=== PATIENT | female | born 1990 | race Caucasian/White ===

== ENCOUNTER 2016-11-29 11:47 | Emergency (ER) | payer BC ==
[2016-11-29] MEDS ORDERED: NS 1,000 ML IV ONE (12:02)
[2016-11-29] MEDS ORDERED: ONDANSETRON 4 MG/2 ML VIAL IVP ONE (12:02)
[2016-11-29 12:06] VITALS: RESP 18
[2016-11-29] MEDS ORDERED: KETOROLAC 30 MG/1 ML SDV IVP ONE (12:12)
[2016-11-29 12:13] LABS: % IMMATURE GRANULYOCYTES 0.3 % (0.0-1.1); ABSOLUTE IMMATURE GRANULOCYTES 0.02 10^3/uL (0.00-0.10); ADD DIFF? NO; ADD MORPH? NO; ADD SCAN? NO; ATYPICAL LYMPHOCYTE FLAG 10 (0-99); FRAGMENT RBC FLAG 0 (0-99); HEMATOCRIT 45.3 % (38.0-47.0); HEMOGLOBIN 15.4 g/dL (12.6-16.3); LEFT SHIFT FLG 0 (0-99); LIPEMIA HEMOLYSIS FLAG 90 (0-99); MEAN CELL HEMOGLOBIN 33.1 pg (27.9-34.1); MEAN CELL VOLUME 97.4 fL (81.5-99.8); MEAN PLATELET VOLUME 9.1 fL (8.7-11.7); PLATELET CLUMPS FLAG 0 (0-99); PLATELET COUNT 268 10^3/uL (150-400); RED BLOOD CELL COUNT 4.65 10^6/uL (4.18-5.33); RED CELL DISTRIBUTION WIDTH 11.9 % (11.5-15.2)
[2016-11-29 12:14] LABS: COLOR YELLOW; LEUKOCYTE ESTERASE,URINE NEGATIVE (NEGATIVE); NITRITE,URINE NEGATIVE (NEGATIVE)
[2016-11-29 12:23] LABS: AMORPHOUS 1+ /hpf (NONE-1+); MUCUS TRACE /lpf (NONE-1+); RBC,URINE 0-1 /hpf (0-3)
[2016-11-29 12:26] LABS: ANION GAP 14 mEq/L (8-16); CALCIUM 9.6 mg/dL (8.5-10.4); CARBON DIOXIDE 25 mEq/l (22-31); CHLORIDE 105 mEq/L (97-110); CREATININE 0.7 mg/dL (0.6-1.0); GLOMERULAR FILTRATION RATE > 60; GLUCOSE 93 mg/dL (70-100); POTASSIUM 4.7 mEq/L (3.5-5.2); SODIUM 144 mEq/L (134-144)
--- NOTE | 2016-11-29 14:46 | EDPHY ---
H & P Stated Complaint: abdominal pain and vomitting starting yesterday, also started menstrating Time Seen by Provider: 11/29/16 12:02 HPI/ROS: This patient started her menses yesterday-normal timing but described as severe intensity pain associated with that were she normally has mild to moderate cramping. She describes the nature of the pain is both aching and sharp/stabbing feeling. Symptoms worsened when she is supine and extend up further in her belly. When she is lying supine. She developed nausea and vomiting associated with pain starting this morning has had 4 episodes of emesis since shortly after midnight with ongoing nausea now. The pain is 5/10 to 7/10 depending on position or movement. She reports the onset was gradual. She has never had pain this severe during menses in the past. ROS: No fevers or chills. No other constitutional symptoms HEENT: No URI symptoms or other complaints 9 pulmonary: No shortness of breath Cardiovascular: No lightheadedness GI: No upper belly pain. She reports normal bowel movements. : No vaginal discharge prior to her menses. No urinary symptoms. 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 migraines - Family History Significant Family History: No pertinent family hx - Social History Smoking Status: Never smoked Alcohol Use: Rarely Drug Use: None Additional Social History: General Appearance: Alert, no distress. Eyes: Pupils equal and round no pallor or injection. ENT, Mouth: Mucous membranes moist. Respiratory: There are no retractions, lungs are clear to auscultation. Cardiovascular: Regular rate and rhythm. Gastrointestinal: Normoactive cysts, soft, moderate suprapubic tenderness extends left more than right lower quadrant. No guarding or rebound. Back: No CVA tenderness the this test of some pain in her pelvis Neurological: GCS 15 with no focal deficits. Skin: Warm and dry, no rashes. Musculoskeletal: Neck is supple nontender. Extremities are symmetrical, full range of motion. Psychiatric: Mood and affect normal DIFFERENTIAL DIAGNOSIS: After history and physical exam differential diagnosis was considered for dysmenorrhea, ovarian cyst, ruptured ovarian cyst, ectopic , UTI Constitutional: Initial Vital Signs Temperature (C) 36.9 C 11/29/16 12:02 Heart Rate 65 11/29/16 12:02 Respiratory Rate 18 11/29/16 12:02 Blood Pressure 115/69 11/29/16 12:02 O2 Sat (%) 96 11/29/16 12:02 O2 Delivery Mode Room Air Allergies/Adverse Reactions: No Known Allergies Allergy (Verified 11/29/16 12:01) Home Medications: Medication Instructions Recorded traMADol [Ultram 50 mg (*)] 50 - 100 mg PO Q4 PRN #20 tab 11/29/16 Medical Decision Making - Diagnostics Imaging Results: Complete pelvic ultrasound revealed slightly enlarged right ovary with increased follicles 5 x [address] Flor-radiologist with whom I discussed this study left ovary is normal in size. Uterus-no remarkable findings ED Course/Re-evaluation: IV Toradol with improvement down to 4/10 discomfort. Patient declined other analgesics explaining that she drove here would prefer to drive home. Review of her labs reveals a negative HCG, unremarkable urinalysis, CBC is normal, basic metabolic panel normal Discussion: Findings are consistent with dysmenorrhea. Patient is comfortable with normal vital signs at the time of discharge. I counseled her regarding her ultrasound. I did explain that the left ovary is not visualized as well as the right so she understands the need to return if she should have any significant increase in her pain despite the treatment plan of ibuprofen, Tylenol and if needed-tramadol. We ruled out ectopic with a negative HCG. We ruled out UTI with normal UA, She does not have a surgical abdomen, no other concerning findings - Data Points Laboratory Results: Laboratory Results 11/29/16 12:00 11/29/16 12:00 Medications Given: Discontinued Medications Sodium Chloride (Ns) 1,000 mls @ 0 mls/hr IV EDNOW ONE; Wide Open PRN Reason: Protocol Stop: 11/29/16 12:03 Last Admin: 07/21/17 12:11 Dose: 1,000 mls Ketorolac Tromethamine (Toradol) 30 mg IVP EDNOW ONE Stop: 11/29/16 12:13 Last Admin: 11/29/16 12:15 Dose: 30 mg Ondansetron HCl (Zofran) 4 mg IVP EDNOW ONE Stop: 11/29/16 12:03 Last Admin: 11/29/16 12:12 Dose: 4 mg Departure - Departure Disposition: Home, Routine, Self-Care Clinical Impression: Dysmenorrhea Condition: Good Instructions: Dysmenorrhea (ED) Additional Instructions: Diagnosis: Dysmenorrhea Plan: Ibuprofen-600 mg per 6 hours as needed and Tylenol for pain control For pain that prevents sleep-tramadol in addition. No driving, alcohol or come tramadol. Your symptoms should improve over the next 2-3 days. Return for any significant worsening despite the treatment plan Referrals: NONE *PRIMARY CARE P,. [Primary Care Provider] - As per Instructions Stand Alone Forms: Work Excuse Prescriptions: traMADol [Ultram 50 mg (*)] 50 - 100 mg PO Q4 PRN #20 tab PRN Reason: breakthrough pain
[2016-11-29 14:55] VITALS: BP 118/72; PULSE 67; TEMP 98; O2SAT 98
== END 2016-11-29 14:54 | disposition home or self-care (01) ==
LOC: CED 11:47
DX: N94.6 Dysmenorrhea, unspecified (principal); E86.9 Volume depletion, unspecified; R11.2 Nausea with vomiting, unspecified
CPT/HCPCS: 76856-PO; 80048-PO; 81003-PO; 81015-PO; 84703-PO; 85025-PO; 96374; J1885; J2405

== ENCOUNTER 2017-01-01 15:24 | Emergency (ER) | payer BC ==
[2017-01-01 15:31] VITALS: BP 112/75; PULSE 68; RESP 18; TEMP 98.1; O2SAT 99
--- NOTE | 2017-01-01 16:22 | EDPHY ---
H & P Stated Complaint: l neck/face pain/walters x 2 days/ non traumatic Source: Patient Exam Limitations: No limitations - Personal History LMP (Females 10-55): 1-7 Days Ago Current Tetanus/Diphtheria Vaccine: Yes Tetanus Vaccine Date: less than 10 years - Medical/Surgical History Hx Asthma: No Hx Chronic Respiratory Disease: No Hx Diabetes: No Hx Cardiac Disease: No Hx Renal Disease: No Hx Cirrhosis: No Hx Alcoholism: No Hx HIV/AIDS: No Hx Splenectomy or Spleen Trauma: No Other PMH: bicornate uterus//05-27-15 Rt hip contusions. migraines - Social History Smoking Status: Never smoked HPI/ROS: CHIEF COMPLAINT: Neck pain, headache HISTORY OF PRESENT ILLNESS: Patient complains of 2 days history of left-sided trapezius pain and spasm. This radiates up into the head causing headache as well. Gradual onset. Constant duration. Moderately worsening over the last 2 days. No fever chills. No stiffness. No trauma or injury. No sudden onset of headache. This is not the worst headache of her life, she does have migraine headaches. This is different than her typical migraine headaches. Reproducible by pushing on the left trapezius or trying to turn. It does occasionally radiate down the left upper arm. No weakness. No numbness or tingling. No other associated complaints or modifying factors. REVIEW OF SYSTEMS: Ten systems reviewed and are negative unless otherwise noted in the HPI PAST MEDICAL HISTORY: Migraine headaches, ovarian cysts SOCIAL HISTORY: Nonsmoker. Works at a [employer] locally. Lives independently. FAMILY HISTORY: Noncontributory EXAMINATION General Appearance: Alert, no distress Head: normocephalic, atraumatic Eyes: Pupils equal and round, no conjunctival pallor or injection ENT, Mouth: Mucous membranes moist. Uvula midline. Airway widely patent Neck: Normal inspection, supple. There is tenderness of the left trapezius and of the paraspinous musculature. No bony tenderness. No crepitus. No meningismus or rigidity. Respiratory: Lungs are clear to auscultation Cardiovascular: Regular rate and rhythm. No murmur Gastrointestinal: Abdomen is soft and nontender Back: non-tender, no bony abnormalities Neurological: A&O, nonfocal, normal gait. Strength symmetric in all 4 limbs. Skin: Warm and dry, no rash. No petechiae or purpura Extremities: Nontender, no pedal edema Psychiatric: Mood and affect normal DIFFERENTIAL DIAGNOSES: Including but not limited to tension headache, trapezius strain, muscle spasm, migraine, meningitis MDM: 4:20 p.m. Left-sided trapezius muscle spasm and pain that is causing a likely tension headache. She has no evidence of meningitis or any nuchal rigidity. Vital signs were well within normal limits. No sudden onset headache. No concern for subarachnoid hemorrhage. Pain is completely reproducible on the left trapezius. Treat with ongoing anti-inflammatories and short course of muscle relaxant or Tylenol 3 with codeine. We discussed this in detail and the need for caution with medication. We also discussed return to ER precautions. She is comfortable with this plan and discharged home in stable condition. SUPERVISION: This patient was independently evaluated without direct examination by the attending physician. Case was discussed with attending physician. (Ivan Pelayo) Constitutional: Initial Vital Signs Temperature (C) 36.7 C 01/01/17 15:29 Heart Rate 68 01/01/17 15:29 Respiratory Rate 18 01/01/17 15:29 Blood Pressure 112/75 01/01/17 15:29 O2 Sat (%) 99 01/01/17 15:29 O2 Delivery Mode Room Air Allergies/Adverse Reactions: No Known Allergies Allergy (Verified 01/01/17 15:28) Home Medications: Medication Instructions Recorded Acetaminophen/Codeine 300/30Mg 1 each PO Q6 PRN #11. tab 01/01/17 [Tylenol #3 (*)] Bcp 01/01/17 Cyclobenzaprine [Flexeril 10 MG 10 mg PO TID PRN #15 tab 01/01/17 (*)] Medical Decision Making ED Course/Re-evaluation: The patient was evaluated and managed by the physician physician's assistant. I have reviewed this chart and I agree with the findings and plan of care as documented , as indicated by my signature. I am the secondary supervising physician. ( Eliane Cardenas) Departure - Departure Disposition: Home, Routine, Self-Care Clinical Impression: Tension headache, Muscle spasm Condition: Good Instructions: Tension Headache (ED), Muscle Spasm (ED) Additional Instructions: 1. Flexeril as prescribed as needed 2. Tylenol 3 as prescribed as needed in replaced the Flexeril but not in conjunction with the Flexeril 3. Continue [id number] anti-inflammatories 4. Increase water intake 5.Massage as tolerated as available 6. ED precautions as discussed Referrals: NONE *PRIMARY CARE P,. [Primary Care Provider] - As per Instructions Sri Gutierrez, [Doctor of Osteopathy] - As per Instructions Stand Alone Forms: Work Excuse Prescriptions: Acetaminophen/Codeine 300/30Mg [Tylenol #3 (*)] 1 each PO Q6 PRN #11. tab PRN Reason: Pain, Mild Cyclobenzaprine [Flexeril 10 MG (*)] 10 mg PO TID PRN #15 tab PRN Reason: Spasms
== END 2017-01-01 16:20 | disposition home or self-care (01) ==
DX: G44.209 Tension-type headache, unspecified, not intractable (principal); M62.838 Other muscle spasm

== ENCOUNTER 2017-06-14 17:54 | Emergency (ER) | payer BC ==
[2017-06-14 17:59] VITALS: O2SAT 99
--- NOTE | 2017-06-14 18:23 | EDPHY ---
H & P Stated Complaint: r great toe inf/started on keflex thurs/not better Time Seen by Provider: 06/14/17 18:05 HPI/ROS: CHIEF COMPLAINT: Right great toe infection HISTORY OF PRESENT ILLNESS: Patient is a 26-year-old female who complains of erythema and significant pain to the medial base of her right great toenail. It does not appear to involve the toenail laterally. It is not central but to the right. It is fluctuant and extremely tender. It began about a week ago. She was seen at the clinic and started on Keflex 3 days ago. It is not improved. She has not had a fever. She has not been able to where she was or sleep well at night. She denies any trauma. 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 REVIEW OF SYSTEMS: Constitutional: denies: chills, fever, recent illness, recent injury EENTM: denies: blurred vision, double vision, nose congestion Respiratory: denies: cough, shortness of breath Cardiac: denies: chest pain, irregular heart rate, lightheadedness, palpitations Gastrointestinal/Abdominal: denies: abdominal pain, diarrhea, nausea, vomiting, blood streaked stools Genitourinary: denies: dysuria, frequency, hematuria, pain Musculoskeletal: denies: joint pain, muscle pain Skin: See HPI Neurological: denies: headache, numbness, paresthesia, tingling, dizziness, weakness Hematologic/Lymphatic: denies: blood clots, easy bleeding, easy bruising Immunologic/allergic: denies: HIV/AIDS, transplant EXAM: GENERAL: Well-appearing, well-nourished and in no acute distress. HEAD: Atraumatic, normocephalic. EYES: Pupils equal round and reactive to light, extraocular movements intact, sclera anicteric, conjunctiva are normal. ENT: TMs normal, nares patent, oropharynx clear without exudates. Moist mucous membranes. NECK: Normal range of motion, supple without lymphadenopathy or JVD. LUNGS: Breath sounds clear to auscultation bilaterally and equal. No wheezes rales or rhonchi. HEART: Regular rate and rhythm without murmurs, rubs or gallops. ABDOMEN: Soft, nontender, normoactive bowel sounds. No guarding, no rebound. No masses appreciated. BACK: No CVA tenderness, no spinal tenderness, step-offs or deformities EXTREMITIES: Normal range of motion, no pitting or edema. No clubbing or cyanosis. NEUROLOGICAL: Cranial nerves II through XII grossly intact. Normal speech, normal gait. 5/5 strength, normal movement in all extremities, normal sensation PSYCH: Normal mood, normal affect. SKIN: See diagram Source: Patient Exam Limitations: No limitations - Personal History LMP (Females 10-55): 1-7 Days Ago Current Tetanus/Diphtheria Vaccine: Yes Tetanus Vaccine Date: less than 10 years - Medical/Surgical History Hx Asthma: No Hx Chronic Respiratory Disease: No Hx Diabetes: No Hx Cardiac Disease: No Hx Renal Disease: No Hx Cirrhosis: No Hx Alcoholism: No Hx HIV/AIDS: No Hx Splenectomy or Spleen Trauma: No Other PMH: bicornate uterus//05-27-15 Rt hip contusions. migraines - Family History Significant Family History: No pertinent family hx - Social History Smoking Status: Never smoked Alcohol Use: Sober Drug Use: None Constitutional: Initial Vital Signs Temperature (C) 36.7 C 06/14/17 17:56 Heart Rate 76 06/14/17 17:56 Respiratory Rate 18 06/14/17 17:56 Blood Pressure 100/70 06/14/17 17:56 O2 Sat (%) 99 06/14/17 17:56 O2 Delivery Mode Room Air Allergies/Adverse Reactions: No Known Allergies Allergy (Verified 06/14/17 17:55) Home Medications: Medication Instructions Recorded Keflex 06/14/17 Sulfamethox/Tmp 800/160 mg 1 tab PO BID #14 tab 06/14/17 [Bactrim Ds] ED Images - Extremities Feet Top: 1 - Fluctuant, tender, erythematous abscess type lesion. Does not appear to involve the medial or lateral border of the toenail. Medical Decision Making Procedures: The toe was anesthetized with a digital block. The he eponychium was then lifted with scissors and purulent drainage expressed. Patient tolerated the procedure well. Approximately 1 cc of purulence obtained. ED Course/Re-evaluation: Patient tolerated the procedure well. She feels much better. I encouraged ibuprofen and will give her a take-home pack of Vicodin to take tonight. I will also add Bactrim to the Keflex she is already taking. Differential Diagnosis: Partial list of the Differential diagnosis considered include but were not limited to; abscess, paronychia, felon, ingrown toenail and although unlikely based on the history and physical exam, I also considered osteomyelitis, immunosuppression. I discussed these differential diagnoses and the plan with the patient as well as the usual and expected course. The patient understands that the diagnosis is provisional and that in medicine we are not always correct and that further workup is often warranted. Usual and customary warnings were given. All of the patient's questions were answered. The patient was instructed to return to the emergency department should the symptoms at all worsen or return, otherwise to followup with the physician as we discussed. - Data Points Medications Given: Discontinued Medications Hydrocodone Bitart/Acetaminophen ([place] 5/325mg Prepack#6) 1 btl TAKEHOME EDNOW ONE Stop: 06/14/17 19:05 Last Admin: 06/14/17 19:08 Dose: 1 btl Trimethoprim/Sulfamethoxazole (Bactrim Ds) 1 ea PO EDNOW ONE PRN Reason: Protocol Stop: 06/14/17 19:05 Last Admin: 06/14/17 19:07 Dose: 1 ea Departure - Departure Disposition: Home, Routine, Self-Care Clinical Impression: Paronychia of toe of right foot Condition: Good Instructions: Hydrocodone/Acetaminophen (By mouth), Paronychia (ED) Referrals: NONE *PRIMARY CARE P,. [Primary Care Provider] - As per Instructions Stand Alone Forms: Work Excuse Prescriptions: Sulfamethox/Tmp 800/160 mg [Bactrim Ds] 1 tab PO BID #14 tab
[2017-06-14] MEDS ORDERED: HYDROCOD/APAP 5/325 PREPACK#6 BTL TAKEHOME ONE (19:04)
[2017-06-14] MEDS ORDERED: SULFAMETHOX/TMP 800/160 MG 1 TAB PO ONE (19:04)
[2017-06-14 19:19] VITALS: BP 109/65; PULSE 80; RESP 16; TEMP 97.7
== END 2017-06-14 19:16 | disposition home or self-care (01) ==
PROC: 3E0T3BZ Introduction of Anesthetic Agent into Peripheral Nerves and Plexi, Percutaneous Approach (ICD-10-PCS; principal; 2017-06-14)
DX: L03.031 Cellulitis of right toe (principal)

== ENCOUNTER → 2018-06-07 | Outpatient (CLI) | payer BC | LOC: BMCIMAGING 16:55 → MERGE 16:55 | PROVIDERS: ATTEND Family Medicine | DX: S39.92XA Unspecified injury of lower back, initial encounter (principal) ==